=== PATIENT | male | born 1975 | race Caucasian/White ===

== ENCOUNTER 2025-04-09 22:32 | Emergency (ER) | payer BC, SELFPAY ==
[2025-04-09 22:34] VITALS: BP 179/111
--- NOTE | 2025-04-09 23:20 | ED.GENMED ---
History of Present Illness
General
Chief Complaint: Musculo-Skeletal Complaint
Time Seen by Provider: 04/09/25 22:57
History of Present Illness
History of Present Illness:
49-year-old male presents to the emergency department for evaluation of progressively worsening right-sided neck pain rating to the right upper extremity. He has had the symptoms ongoing for 10 years intermittently, has previously seen a
chiropractor with some improvement. Symptoms have progressively worsened over the past several weeks, he saw outpatient orthopedics 2 days ago and was given a prescription for meloxicam and outpatient orders for physical therapy. He saw his
primary care physician earlier this morning and was given an outpatient order for an MRI. He comes to the ER tonight due to worsening pain preventing him from sleeping, notes that his insurance will at the end of this calendar year and he is
hoping to have more diagnostics and treatment done in the interim. Denies any weakness in the arm.
Past History
Past History
ED Past Medical History: None
ED Past Surgical History: None
Social History
Tobacco: Non-smoker
Personal:
Living: with family
Employment: Employed
Review of Systems
Review of Systems
Allergies reviewed?: Yes
All Other Systems: ROS reviewed and negative except as documented in HPI and ROS
Phy Exam
Physical Exam
Physical Exam:
GEN: Well appearing, NAD, WDWN
HEENT: Oral mucosa moist, no scleral icterus
Cardiac: Regular rate
Lung: No respiratory distress, no tachypnea
MSK: No gross deformity or injuries. Limited rightward flexion and rightward rotation of the neck otherwise range of motion normal. No tenderness elicited to the bony or soft tissues of the cervical spine.
Skin: Good color, no pallor or jaundice, no rashes
Neuro: AO x3, moves all extremities freely, bilateral upper extremity strength 5 out of 5 in all zabala, sensation intact to light touch and symmetric
Psych: Calm, cooperative
Course
Orders/Labs/Results
Orders:
Orders
12/26/25 23:19
Cyclobenzaprine HCl [Flexeril] 10 mg PO NOW STA
Prednisone [Deltasone] 60 mg PO NOW STA
Vital Signs
Initial and Last Documented VS:
Initial Vital Signs
Temp Pulse Resp BP Pulse Ox
97.4 F 71 18 179/111 97
04/09/25 22:34 04/09/25 22:34 04/09/25 22:34 04/09/25 22:34 04/09/25 22:34
Last Documented Vital Signs
Temp Pulse Resp BP Pulse Ox
97.4 F 71 18 179/111 97
04/09/25 22:34 04/09/25 22:34 04/09/25 22:34 04/09/25 22:34 04/09/25 23:22
MDM/Problems Addressed
MDM/Problems Addressed:
Patient's presentation consistent with cervical radiculopathy most likely from disc herniation particular given the worsening with rightward flexion of the neck. He has no objective weakness. Unfortunately there is no indication at this time for
urgent MRI, regardless it is almost certain that there would be no ability for him to expedite care before he loses health insurance. I will offer him a 2-week tapering dose of corticosteroids and lieu of meloxicam for additional pain relief.
Recommend home physical therapy exercises for affordability purposes, if he does maintain insurance at any point in time he should consider spine specialty follow-up and outpatient MRI at his leisure
*Pulse Oximetry
SaO2: 97
Oxygen Mode of Delivery: Room air
Patient hypoxic: no
*Critical Care Note
Total Time (30-74mins, 75-104mins- exclusive of procedures): Not Applicable
ED Attending Note
-
Portions of this chart may have been created with voice recognition software.� Occasional wrong word or��sound alike� substitutions may have occurred due to the inherent limitations of voice recognition software.
Discharge Plan
Departure
Patient Disposition: Home (Routine Discharge)
Date of Disposition: 04/09/25
Time of Disposition: 23:21
Patient with high blood pressure during this ER visit?: No
Discharge Problem:
Cervical radiculopathy
Instructions: Passive Range of Motion Exercises, Neck and Shoulders, Radiculopathy of the neck and back (including sciatica) (DC), Neck exercises
Prescriptions:
New
prednisone 10 mg tablet
10 mg PO DIRECTED Qty: 43 0RF
Rx Instructions:
Once daily as follows: 60, 60, 50, 50, 40, 40, 30, 30, 20, 20, 10, 10, 5, 5
methocarbamol 750 mg tablet
750 - 1,500 mg PO HS Qty: 20 0RF
Referrals:
Faisal Greene DO [Family Provider, Family Practice]
Interventions
Interventions:
*General Assessment Last Done: 04/09/25 22:34
*Neglect/Abuse Screening Last Done: 04/09/25 22:34
*ED COVID-19 Vaccine History Last Done: 04/09/25 23:30
*ED Influenza Vaccine History Last Done: 04/09/25 23:30
[facility] Fall Risk Assessment Tool Last Done: 04/09/25 23:30
*Risk Screen - Suicide (C-SSRS) Last Done: 04/09/25 22:34
*Nursing Disposition Last Done: 04/09/25 23:31
ED-Musculoskeletal Assessment Last Done: 04/09/25 23:31
Discharge Date and Time
Discharge Date/Time: 04/09/25 23:32
Print Language: DANISH
[2025-04-09] MEDS: DELTASONE 60 MG PO (23:26)
[2025-04-09] MEDS: FLEXERIL 10 MG PO (23:26)
== END 2025-04-09 23:32 | disposition home or self-care (01) ==
LOC: EMR 22:32
PROVIDERS: EMERGENCY PHYSICIAN Emergency Medicine; FAMILY PHYSICIAN Family Medicine
DX: M54.12 Radiculopathy, cervical region (principal); M79.621 Pain in right upper arm
CPT/HCPCS: 99283